=== PATIENT | female | born 1955 | race American Indian/Alaskan Native ===

== ENCOUNTER 2020-03-31 16:07 | Emergency (ER) | payer MEDICARE, OTHER ==
[~2020-03-31] VITALS: Ht 172.7 cm; Wt 61.4 kg
[~2020-03-31 16:07] MED LIST: BUPR150T8 PO; ESTR0.3T10 PO; HYDR-3965 PO; LORA10TA7 PO; MODA200T25 PO; NAPR-56 PO; ZOLP5TAB8 PO
[2020-03-31] MEDS ORDERED: rabies immune globulin/PF 150 unit/ml inj IMVAC ONE (17:15)
[2020-03-31] MEDS ORDERED: TETanus/Pertussis (Acell)/Diphther VAC/PF (Tdap-Adult) 0.5ml syringe IMVAC ONE (17:15)
[2020-03-31] MEDS ORDERED: rabies vaccine (PCEC)/PF 2.5 unit kit IMVAC ONE (17:15)
[2020-03-31 18:59] VITALS: BP 153/80
== END 2020-03-31 18:53 | disposition home or self-care (01) ==
LOC: ER 16:07
DX: S61.531A Puncture wound without foreign body of right wrist, initial encounter (principal); Z90.710 Acquired absence of both cervix and uterus; Z98.890 Other specified postprocedural states; Z79.899 Other long term (current) drug therapy; W55.01XA Bitten by cat, initial encounter; Y93.89 Activity, other specified; Y92.89 Other specified places as the place of occurrence of the external cause; Y99.8 Other external cause status
CPT/HCPCS: 90375; 90471; 90472; 90675; 90715; 96372; 99284

== ENCOUNTER 2020-04-03 10:53 | Emergency (ER) | payer MEDICARE, OTHER ==
[~2020-04-03] VITALS: Ht 172.7 cm; Wt 62.9 kg
[2020-04-03 11:00] VITALS: BP 121/77
[2020-04-03] MEDS ORDERED: rabies vaccine (PCEC)/PF 2.5 unit kit IMVAC ONE (11:20)
== END 2020-04-03 11:50 | disposition home or self-care (01) ==
LOC: ER 10:53
DX: R50.9 Fever, unspecified (principal); L53.9 Erythematous condition, unspecified; Z90.710 Acquired absence of both cervix and uterus; Z98.890 Other specified postprocedural states; Z60.2 Problems related to living alone; Z72.89 Other problems related to lifestyle; Z79.899 Other long term (current) drug therapy; W55.01XA Bitten by cat, initial encounter; Y93.89 Activity, other specified; Y92.89 Other specified places as the place of occurrence of the external cause; Y99.8 Other external cause status
CPT/HCPCS: 90471; 90675; 99282; 99283

== ENCOUNTER 2020-04-07 16:21 | Emergency (ER) | payer MEDICARE, OTHER ==
[~2020-04-07] VITALS: Ht 172.7 cm; Wt 61.4 kg
[2020-04-07 16:25] VITALS: BP 117/76
[2020-04-07] MEDS ORDERED: rabies vaccine (PCEC)/PF 2.5 unit kit IMVAC ONE (17:15)
[2020-04-07] MEDS ORDERED: AMOX-422 PO (17:20)
== END 2020-04-07 17:38 | disposition home or self-care (01) ==
LOC: ER 16:22
DX: Z23 Encounter for immunization (principal); Z90.710 Acquired absence of both cervix and uterus; Z98.890 Other specified postprocedural states; Z79.899 Other long term (current) drug therapy
CPT/HCPCS: 90471; 90675; 99283

== ENCOUNTER 2020-04-14 18:17 | Emergency (ER) | payer MEDICARE, OTHER ==
[~2020-04-14] VITALS: Ht 172.7 cm; Wt 61.0 kg
[2020-04-14 18:31] VITALS: BP 116/72
[2020-04-14] MEDS ORDERED: rabies vaccine (PCEC)/PF 2.5 unit kit IMVAC ONE (18:55)
== END 2020-04-14 19:37 | disposition home or self-care (01) ==
LOC: ER 18:18
DX: Z23 Encounter for immunization (principal); S61.401D Unspecified open wound of right hand, subsequent encounter; Z90.710 Acquired absence of both cervix and uterus; Z98.890 Other specified postprocedural states; Z60.2 Problems related to living alone; Z79.899 Other long term (current) drug therapy; W55.01XD Bitten by cat, subsequent encounter
CPT/HCPCS: 90471; 90675; 99281

== ENCOUNTER 2020-05-28 19:40 | Emergency (ER) | payer MEDICARE, OTHER ==
[~2020-05-28] VITALS: Ht 172.7 cm; Wt 70.5 kg
[2020-05-28 19:49] VITALS: BP 139/71
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
== END 2020-05-28 20:30 | disposition home or self-care (01) ==
LOC: ER 19:41
DX: S09.90XA Unspecified injury of head, initial encounter (principal); H92.02 Otalgia, left ear; Z98.890 Other specified postprocedural states; Z72.89 Other problems related to lifestyle; Z79.899 Other long term (current) drug therapy; Y08.89XA Assault by other specified means, initial encounter; Y93.9 Activity, unspecified; Y92.89 Other specified places as the place of occurrence of the external cause; Y99.8 Other external cause status
CPT/HCPCS: 99281

== ENCOUNTER 2022-07-20 07:23 | Emergency (ER) | payer MEDICARE ==
[~2022-07-20] VITALS: Ht 172.7 cm; Wt 62.5 kg
[2022-07-20] MEDS ORDERED: morphine 4 MG/ML inj SYRINge IV ONE (12:55)
[2022-07-20 13:31] LABS: BASOPHILS # (AUTO) 0.1 X10'3 (0-0.2); EOSINOPHILS # (AUTO) 0.4 X10'3 (0-0.9); EOSINOPHILS % (AUTO) 5.8 % (0-6); HEMATOCRIT 36.1 % (35.0-45.0); HEMOGLOBIN 12.4 g/dl (12.0-16.0); LYMPHOCYTES # (AUTO) 1.2 X10'3 (1.1-4.8); LYMPHOCYTES % (AUTO) 19.6 % (21-51); MEAN CORPUSCULAR HGB CONC 34.5 g/dL (33.0-36.5); MEAN CORPUSCULAR VOLUME 95.7 FL (78-98); MEAN PLATELET VOLUME 9.8 FL (7.4-10.4); MONOCYTES # (AUTO) 0.6 X10'3 (0-0.9); MONOCYTES % (AUTO) 10.2 % (2-12); NEUTROPHILS % (AUTO) 63.4 % (42-75); PLATELET COUNT 232 X10'3 (140-440); RED BLOOD COUNT 3.77 X10'6 (4.20-5.60); RED CELL DISTRIBUTION WIDTH 12.1 % (11.5-14.5); WHITE BLOOD COUNT 6.4 X10'3 (4.5-11.0)
[2022-07-20] MEDS ORDERED: diazepam inj 5 MG/ML inj. IV ONE (13:45)
[2022-07-20 13:47] LABS: ALANINE AMINOTRANSFERASE 12 U/L (12-78); ALBUMIN 3.2 G/DL (3.4-5.0); ALBUMIN/GLOBULIN RATIO 0.9 (1.1-1.5); ALKALINE PHOSPHATASE 86 IU/L (46-116); ANION GAP 11 (8-16); ASPARTATE AMINO TRANSFERASE 22 U/L (10-37); BILIRUBIN,TOTAL 0.3 MG/DL (0.1-1.0); BLOOD UREA NITROGEN 11 MG/DL (7-18); BUN/CREATININE RATIO 14.9 (6.6-38.0); C-REACTIVE PROTEIN 2.76 MG/DL (0.0-0.5); CALCIUM 8.2 MG/DL (8.5-10.1); CHLORIDE 103 MMOL/L (99-107); CREATININE 0.74 MG/DL (0.40-0.90); GLUCOSE 95 MG/DL (70-104); POTASSIUM 3.8 MMOL/L (3.5-5.1); SODIUM 140 MMOL/L (135-145); TOTAL CARBON DIOXIDE 26.2 MMOL/L (24-32); TOTAL PROTEIN 6.9 G/DL (6.4-8.2); eGFR 79 ML/MIN
[2022-07-20] MEDS ORDERED: ketorolac tromethamine 15mg/ml inj. IV ONE (14:05)
[2022-07-20] MEDS ORDERED: morphine 2 MG/ML inj. syringe IV ONE (14:05)
[2022-07-20 14:18] VITALS: BP 105/72
[2022-07-20] MEDS ORDERED: CYCL-394 PO (14:35)
[2022-07-20] MEDS ORDERED: MELO-102 PO (16:26)
== END 2022-07-20 15:00 | disposition home or self-care (01) ==
LOC: ER 07:23
DX: G89.29 Other chronic pain (principal); M25.532 Pain in left wrist; M54.9 Dorsalgia, unspecified; M54.2 Cervicalgia; Z90.49 Acquired absence of other specified parts of digestive tract; Z87.448 Personal history of other diseases of urinary system; Z79.899 Other long term (current) drug therapy
CPT/HCPCS: 36415; 72040; 73110; 80053; 84550; 85025; 86140; 96374; 96375; 96376; 99284; J1885; J2270; J3360

== ENCOUNTER 2023-01-10 15:04 | Emergency (ER) | payer MEDICARE ==
[~2023-01-10] VITALS: Ht 170.2 cm; Wt 61.0 kg
[~2023-01-10 15:04] MED LIST changes: +MELO-102 PO
[2023-01-10 15:37] VITALS: BP 128/76
== END 2023-01-10 18:53 | disposition home or self-care (01) ==
LOC: ER 15:05
DX: T85.44XA Capsular contracture of breast implant, initial encounter (principal); Z87.448 Personal history of other diseases of urinary system; Z90.49 Acquired absence of other specified parts of digestive tract; Z79.899 Other long term (current) drug therapy; Z79.1 Long term (current) use of non-steroidal anti-inflammatories (NSAID); Z79.2 Long term (current) use of antibiotics
CPT/HCPCS: 99281

== ENCOUNTER 2025-05-25 16:05 | Outpatient (CLI) | payer MEDICARE, OTHER ==
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
== END 2025-05-25 23:59 | disposition home or self-care (01) ==
LOC: MRI02 16:05
PROVIDERS: ATTEND Physician Assistant
DX: M25.474 Effusion, right foot (principal); M25.871 Other specified joint disorders, right ankle and foot; L97.515 Non-pressure chronic ulcer of other part of right foot with muscle involvement without evidence of necrosis; R60.0 Localized edema
CPT/HCPCS: 73718